=== PATIENT | male | born 1970 | race Caucasian/White ===

== ENCOUNTER 2019-10-09 12:21 | Outpatient (CLI) | payer OTHER, SELFPAY ==
--- NOTE | 2019-10-09 | US_ITS ---
WS: [id number] ULTRASOUND ABDOMEN CLINICAL INFORMATION: ELEVATED LIVER ENZYMES COMPARISON: None. FINDINGS: Liver Size: Normal. Craniocaudal length: 14.8 cm. Echogenicity: Coarse Surface nodularity: None. Mass (size and location): None. Bile ducts Intrahepatic ducts: Normal. Common bile duct diameter: 3.5 mm Gallbladder Normal. Gallstones: None. Gallbladder sludge: None. Gallbladder wall thickening: None. Pericholecystic fluid: None. Sonographic Mendez sign: Absent. Pancreas Normal as visualized. Right kidney: Normal. Hydronephrosis: None. Size: 11.3 cm x 4.3 cm x 4.2 cm Abdominal aorta and IVC Visualized portions are normal. Ascites: None. US/US liver [id number] IMPRESSION: 1. Coarse hepatic echogenicity consistent with fatty infiltration. 2. Gallbladder is normal. 3. No hydronephrosis in right kidney.
== END 2019-10-09 12:22 | disposition home or self-care (01) ==
LOC: RADOUTREAD 12:24
PROVIDERS: Family Provider Family Medicine; Visit Provider Family Medicine
DX: R74.8 Abnormal levels of other serum enzymes (principal)
CPT/HCPCS: 76705

== ENCOUNTER 2019-10-17 06:10 | Day surgery (SDC) | payer OTHER, SELFPAY ==
[2019-10-17 06:20] VITALS: BP 124/83; PULSE 95; RESP 18; TEMP 36.3; O2SAT 99
[2019-10-17] MEDS: sodium chloride 0.9% 1,000 ML 30 ML IV (06:37)
--- NOTE | 2019-10-17 07:06 | ANES.PREANE2 ---
Pre-Anesthetic Assessment Pre-Anesthetic Assessment: Height/Weight: Height 1.88 m Weight 83.915 kg Temp Pulse Resp BP Pulse Ox 97.3 F L 95 18 124/83 99 10/17/19 06:20 10/17/19 06:20 10/17/19 06:20 10/17/19 06:20 10/17/19 06:20 Proposed Procedure: Operation Date: 10/17/19 07:25 Proposed Procedures p Colonoscopy(Not Applicable) - Vivek Perea MD Was Beta Christa taken within 24 hours: N/A Last intake: Intake Last Liquid Date 10/16/19 Last Liquid Time 22:00 Last Solid Date 10/15/19 Social: Social History: No alcohol and No tobacco Exam: Pre-Anes Outpt Exam: alert, oriented x 3, clear to auscultation bilaterally and regular rate & rhythm Airway: Submandibular: WNL Cervical ROM: WNL MP: 2 Dentition: Full (braces) History/ROS: No significant history except as noted and No significant complaints Pulmonary: Pulmonary: None reported CV/HEM: CV/HEM: None reported : : None reported Hepatic: Hepatic: None reported GI: GI: None reported Metabolic: Metabolic: None reported Musc/skel: Musc/skel: None reported Neuropsych: Neuropsych: None reported Anesthetic Plan: ASA status: 1 Anesthesia: MAC Risk of > 500 ml blood loss (7ml/kg in children): No Meds/Allergies Current Medications: Current Medications Generic Name Dose Route Start Last Admin Trade Name Freq PRN Reason Stop Dose Admin Sodium Chloride 1,000 mls @ 30 ml s/hr 10/17/19 06:30 10/17/19 06:37 Sodium Chloride 0.9% IV 10/18/19 06:29 30 mls/hr .Q24H ASTRID Administration PFSH Anesthesia PFSH: Family History (Updated 10/15/19 @ 12:15 by Odalis Carranza LPN) Other Anemia CHF (congestive heart failure) Cancer Social History (Updated 10/15/19 @ 12:17 by Odalis Carranza LPN) Smoking and tobacco status: never smoked Second hand smoke exposure: No Smoking risk assessment/counseling performed?: No Alcohol intake: never Data Anesthesia Cardiac Studies: No Data to Display
--- NOTE | 2019-10-17 07:34 | ANES.PREANE2 ---
Pre-Anesthetic Assessment Pre-Anesthetic Assessment: Height/Weight: Height 1.88 m Weight 83.915 kg Temp Pulse Resp BP Pulse Ox 97.3 F L 95 18 124/83 99 10/17/19 06:20 10/17/19 06:20 10/17/19 06:20 10/17/19 06:20 10/17/19 06:20 Proposed Procedure: Operation Date: 10/17/19 07:25 Proposed Procedures p Colonoscopy(Not Applicable) - Vivek Perea MD Last intake: Intake Last Liquid Date 10/16/19 Last Liquid Time 22:00 Last Solid Date 10/15/19 Social: Social History: No alcohol and No tobacco Exam: Pre-Anes Outpt Exam: alert Airway: Submandibular: WNL MP: 2 Pulmonary: Pulmonary: None reported CV/HEM: CV/HEM: None reported Meds/Allergies Current Medications: Current Medications Generic Name Dose Route Start Last Admin Trade Name Freq PRN Reason Stop Dose Admin Sodium Chloride 1,000 mls @ 30 ml s/hr 10/17/19 06:30 10/17/19 06:37 Sodium Chloride 0.9% IV 10/18/19 06:29 30 mls/hr .Q24H ASTRID Administration PFSH Anesthesia PFSH: Family History (Updated 10/15/19 @ 12:15 by Odalis Carranza LPN) Other Anemia CHF (congestive heart failure) Cancer Social History (Updated 10/15/19 @ 12:17 by Odalis Carranza LPN) Smoking and tobacco status: never smoked Second hand smoke exposure: No Smoking risk assessment/counseling performed?: No Alcohol intake: never Data Anesthesia Cardiac Studies: No Data to Display
[2019-10-17 08:06] VITALS: BP 126/81; PULSE 78; RESP 16; TEMP 36.5; O2SAT 95
--- NOTE | 2019-10-17 08:11 | W.PM.OPSUD ---
Surgery/Procedure H&P Update DATE OF PROCEDURE: October 17, 2019 DATE H&P PERFORMED: 09/19/19 H&P UPDATE INFORMATION: I have reviewed H&P completed within last 30 days, I have examined patient prior to procedure, No changes to prior documentation and H&P to be scanned into chart PREOP DIAGNOSIS: Screening colonoscopy PLANNED PROCEDURE: Operation Date: 10/17/19 07:25 Proposed Procedures p Colonoscopy(Not Applicable) - Vivek Perea MD
[2019-10-17 08:26] VITALS: BP 114/83; PULSE 73; RESP 18; O2SAT 96
== END 2019-10-17 08:48 | disposition home or self-care (01) ==
PROVIDERS: PCP Family Medicine; Visit Provider Family Medicine
PROC: 0DJD8ZZ Inspection of Lower Intestinal Tract, Via Natural or Artificial Opening Endoscopic (ICD-10-PCS; CPT 45378; principal; 2019-10-17 07:25)
DX: Z12.11 Encounter for screening for malignant neoplasm of colon (principal)
CPT/HCPCS: 12345; 45378; J2704